=== PATIENT | male | born 1980 | race African-American/Black ===

== ENCOUNTER 2021-03-06 07:04 | Emergency (ER) | payer OTHER ==
[~2021-03-06] VITALS: Ht 167.6 cm; Wt 54.4 kg
[2021-03-06 07:09] VITALS: BP 122/71
== END 2021-03-06 08:08 | disposition home or self-care (01) ==
LOC: ER 07:04
PROVIDERS: Emergency Medicine
DX: U07.1 COVID-19 (principal); J02.9 Acute pharyngitis, unspecified; R05.9 Cough, unspecified